=== PATIENT | female | born 1945 | race Caucasian/White ===

== ENCOUNTER 2021-01-02 19:08 | Inpatient (IN) ==
[2021-01-02] MEDS ORDERED: Naloxone 0.4 MG/ML INJ IVP PRN (22:33)
[2021-01-02] MEDS ORDERED: Ondansetron 4 MG/2 ML VIAL IVP PRN (22:33)
[2021-01-02] MEDS ORDERED: Morphine Sulfate 2 MG/ML SYRINGE IVP PRN (22:35)
[2021-01-02] MEDS ORDERED: *HR* Heparin 5,000 UNIT/ML VIAL IVP PRN ×2 (23:30)
[2021-01-02] MEDS ORDERED: Heparin 25,000UNIT/250ML 1/2NS 25,000 UNIT/250 ML IV.SOLN IVC SCH (23:30)
[2021-01-02] MEDS ORDERED: Dextrose Gel 15 GM/37.5 ML TUBE PO PRN ×2 (23:37)
[2021-01-02] MEDS ORDERED: Perflutren Lipid Microsphere 1.3 ML in 0.9 % Sodium Chloride 8.7 ML IVP PRN (23:37)
[2021-01-02] MEDS ORDERED: *HR* Dextrose 50 % in Water (Vial) 50 ML VIAL IVP PRN (23:37)
[2021-01-02] MEDS ORDERED: D5% in Water 1,000 ML IVC PRN (23:37)
[2021-01-03 00:53] LABS: Hematocrit 37.6 % (35.3-44.9); Hemoglobin 12.7 g/dL (11.5-15.4); Mean Corpuscular HGB Conc 33.8 g/dL (31.6-35.5); Mean Corpuscular Hemoglobin 30.6 pg (28.0-33.3); Mean Corpuscular Volume 90.6 fL (83.0-100.0); Mean Platelet Volume 11.4 fL (9.4-12.4); Platelet Count 184 K/mcL (140-400); Red Blood Count 4.15 M/mcL (3.82-4.97); White Blood Count 11.1 K/mcL (4.3-11.1)
[2021-01-03] MEDS: Insulin LISPRO 300 UNITS/3 ML VIAL SUBQ SCH ×4 (01:00→17:02)
[2021-01-03 01:01] LABS: INR 1.2; Prothrombin Time 13.7 Seconds (9.4-12.1)
[2021-01-03 01:04] LABS: Activated Partial Thrombo Time 89.7 Seconds (26.0-36.0)
[2021-01-03 01:06] LABS: Heparin anti-factor XA UFH 1.12 IU/mL (0.30-0.70)
[2021-01-03 01:13] LABS: Calcium 9.4 mg/dL (8.6-10.3); Chol/HDL Ratio 3.6 (0-4.9); Potassium 4.5 mEq/L (3.5-5.1)
[2021-01-03 01:40] LABS: Estimated Average Glucose 295 mg/dl; Hemoglobin A1C 11.9 %
[2021-01-03] MEDS ORDERED: Perflutren Lipid Microsphere 1.3 ML in 0.9 % Sodium Chloride 8.7 ML IVP PRN (07:00)
[2021-01-03] MEDS ORDERED: Nitroglycerin 1,000 MCG/5 ML VIAL IV ONE (08:39)
[2021-01-03] MEDS ORDERED: Heparin 1,000 UNITS/500 mL 500 ML ONE (08:39)
[2021-01-03] MEDS ORDERED: *HR* Heparin 10,000 UNIT/10 ML VIAL ONE (08:39)
[2021-01-03] MEDS ORDERED: ISOVUE-370 200 ML INFUS..BTL ONE ×2 (08:39→09:29)
[2021-01-03] MEDS ORDERED: 0.9 % Sodium Chloride 1,000 ML ONE ×2 (08:39→08:46)
[2021-01-03] MEDS: Aspirin 81 MG TAB.CHEW PO SCH (08:44)
[2021-01-03] MEDS ORDERED: *HR* FentaNYL (PF) 100 MCG/2 ML VIAL ONE (09:05)
[2021-01-03] MEDS ORDERED: *HR* Midazolam HCl 2 MG/2 ML VIAL ONE (09:05)
[2021-01-03] MEDS ORDERED: Tirofiban 12.5 MG/250ML 12.5 MG/250 ML BAG ONE (09:16)
[2021-01-03] MEDS ORDERED: Tirofiban 12.5 MG/250ML 12.5 MG/250 ML BAG IVC SCH (09:45)
[2021-01-03] MEDS ORDERED: *HR* Atropine Sulfate 1 MG/10 ML SYRINGE ONE (11:38)
[2021-01-03] MEDS: Isosorbide MONOnitrate (24 HR) 30 MG TAB.ER.24H PO SCH (13:19)
[2021-01-03] MEDS ORDERED: 0.9 % Sodium Chloride 1,000 ML IVC SCH (16:00)
[2021-01-03] MEDS: carvediloL 6.25 MG TABLET PO SCH (17:02)
[2021-01-03 20:05] LABS: Protein/Creatinine Ratio,Urine 1.85 mg/mg (0.00-0.20)
[2021-01-03] MEDS ORDERED: Insulin LISPRO 300 UNITS/3 ML VIAL SUBQ SCH (21:00)
[2021-01-04 06:41] LABS: Basophils % 0.4 %; Eosinophils # 0.1 K/mcL (0.0-0.6); Eosinophils % 0.7 %; Hematocrit 30.8 % (35.3-44.9); Immature Granulocytes % 0.3 % (0-4); Lymphocytes # 1.5 K/mcL (0.6-4.6); Lymphocytes % 15.8 %; Mean Corpuscular HGB Conc 33.1 g/dL (31.6-35.5); Mean Corpuscular Hemoglobin 30.4 pg (28.0-33.3); Mean Corpuscular Volume 91.9 fL (83.0-100.0); Monocytes # 0.8 K/mcL (0.0-1.3); Monocytes % 8.1 %; Platelet Count 147 K/mcL (140-400); Red Blood Count 3.35 M/mcL (3.82-4.97); Red Cell Distribution Width 13.1 % (11.5-14.5); Segmented Neutrophils % 74.7 %; White Blood Count 9.3 K/mcL (4.3-11.1)
[2021-01-04 06:43] LABS: Hemoglobin 10.2 g/dL (11.5-15.4)
[2021-01-04 07:04] LABS: Troponin I > 73.00 ng/mL (< 0.04)
[2021-01-04 07:26] LABS: BUN/Creatinine Ratio 20 (6-26); Blood Urea Nitrogen 31 mg/dL (8-23); Calcium 8.5 mg/dL (8.6-10.3); Carbon Dioxide 24 mEq/L (23-29); Chloride 105 mEq/L (98-107); Glucose 249 mg/dL (70-105); Osmolality,Calculated 297 (280-300); Potassium 4.7 mEq/L (3.5-5.1); Sodium 136 mEq/L (136-145); eGFR For African Americans 40 (> 60); eGFR For Non-African Americans 33 (> 60)
[2021-01-04] MEDS: Insulin LISPRO 300 UNITS/3 ML VIAL SUBQ SCH ×3 (08:32→17:31)
[2021-01-04] MEDS: Isosorbide MONOnitrate (24 HR) 30 MG TAB.ER.24H PO SCH (08:38)
[2021-01-04] MEDS: carvediloL 6.25 MG TABLET PO SCH ×2 (08:38→17:35)
[2021-01-04] MEDS: Aspirin 81 MG TAB.CHEW PO SCH (08:38)
[2021-01-04] MEDS ORDERED: Aspirin 81 MG TAB.CHEW PO SCH (09:00)
[2021-01-04] MEDS ORDERED: Morphine Sulfate 2 MG/ML SYRINGE IVP PRN (16:31)
[2021-01-04] MEDS ORDERED: Perflutren Lipid Microsphere 1.3 ML in 0.9 % Sodium Chloride 8.7 ML IVP PRN (16:31)
[2021-01-04] MEDS ORDERED: D5% in Water 1,000 ML IVC PRN (16:31)
[2021-01-04] MEDS ORDERED: Ondansetron 4 MG/2 ML VIAL IVP PRN (16:31)
[2021-01-04] MEDS ORDERED: Naloxone 0.4 MG/ML INJ IVP PRN (16:31)
[2021-01-04] MEDS ORDERED: Dextrose Gel 15 GM/37.5 ML TUBE PO PRN ×2 (16:31)
[2021-01-04] MEDS ORDERED: *HR* Dextrose 50 % in Water (Vial) 50 ML VIAL IVP PRN (16:31)
[2021-01-04] MEDS ORDERED: Insulin LISPRO 300 UNITS/3 ML VIAL SUBQ SCH (21:00)
[2021-01-05 01:55] LABS: Basophils % 0.4 %; Eosinophils # 0.2 K/mcL (0.0-0.6); Eosinophils % 1.6 %; Hemoglobin 9.2 g/dL (11.5-15.4); Immature Granulocytes % 0.3 % (0-4); Lymphocytes # 2.2 K/mcL (0.6-4.6); Lymphocytes % 22.9 %; Mean Corpuscular HGB Conc 32.9 g/dL (31.6-35.5); Mean Corpuscular Volume 91.2 fL (83.0-100.0); Mean Platelet Volume 11.7 fL (9.4-12.4); Neutrophils # 6.1 K/mcL (1.6-8.9); Platelet Count 142 K/mcL (140-400); Red Blood Count 3.07 M/mcL (3.82-4.97); Red Cell Distribution Width 13.2 % (11.5-14.5); Segmented Neutrophils % 64.8 %; White Blood Count 9.5 K/mcL (4.3-11.1)
[2021-01-05 02:32] LABS: Calcium 8.3 mg/dL (8.6-10.3); Potassium 4.5 mEq/L (3.5-5.1); Troponin I 42.27 ng/mL (< 0.04)
[2021-01-05] MEDS: Insulin LISPRO 300 UNITS/3 ML VIAL SUBQ SCH ×2 (08:58→12:17)
[2021-01-05] MEDS: carvediloL 6.25 MG TABLET PO SCH (08:59)
[2021-01-05] MEDS ORDERED: Isosorbide MONOnitrate (24 HR) 30 MG TAB.ER.24H PO SCH (09:00)
[2021-01-05] MEDS ORDERED: Aspirin 81 MG TAB.CHEW PO SCH (09:00)
[2021-01-05 14:31] VITALS: BP 115/72
== END 2021-01-05 13:45 | disposition home or self-care (01) | DRG 247 ==
LOC: 3BNU → SUATTDRO 21:20 → ICNU 01-03 10:23
PROVIDERS: ADMIT Internal Medicine; ATTEND Family Medicine